=== PATIENT | female | born 1990 | race Caucasian/White ===

== ENCOUNTER 2019-04-01 00:40 | Observation (INO) ==
--- NOTE | 2019-04-26 22:30 | Event Note ---
Date of Encounter: 04/01/19 Time of Encounter: 01:00 Patient was sent straight to the ER after arrival to L&D unit due to hitting her head when she fell.
== END 2019-04-01 00:45 | disposition other institution (70) ==
LOC: 1NENULAB
PROVIDERS: ADMIT Registered Nurse; ATTEND Registered Nurse